=== PATIENT | male | born 1970 | race African-American/Black ===

== ENCOUNTER 2021-04-23 20:23 | Observation (INO) | payer OTHER ==
[~2021-04-23] VITALS: Ht 190.5 cm; Wt 113.4 kg
[2021-04-23 21:04] LABS: BASOPHILS % 0.3 % (0.0-1.0); EOSINOPHILS # (AUTO) 0.1 (0.0-0.4); EOSINOPHILS % 1.4 % (0.0-6.0); HEMATOCRIT 43.9 % (38.2-49.6); HEMOGLOBIN 14.8 g/dL (14.0-18.0); LYMPHOCYTES # (AUTO) 2.5 (1.0-3.2); LYMPHOCYTES % 25.8 % (18.0-39.1); MEAN CORPUSCULAR HEMOGLOBIN 30.8 pg (28-32); MEAN CORPUSCULAR HGB CONC 33.7 g/dL (31-35); MEAN CORPUSCULAR VOLUME 91.3 fL (81-99); MONOCYTES # (AUTO) 0.9 (0.2-0.8); MONOCYTES % 9.1 % (4.4-11.3); NEUTROPHILS # (AUTO) 6.1 (2.1-6.9); NEUTROPHILS % 63.1 % (38.7-80.0); PLATELET COUNT 111 x10e3/uL (140-360); RED BLOOD COUNT 4.81 x10e6/uL (4.3-5.7); RED CELL DISTRIBUTION WIDTH 13.1 % (11.7-14.4)
[2021-04-23 21:17] LABS: ALANINE AMINOTRANSFERASE 41 IU/L (0-55); ALBUMIN 4.4 g/dL (3.5-5.0); ALBUMIN/GLOBULIN RATIO 1.2 (0.8-2.0); ALKALINE PHOSPHATASE 40 IU/L (40-150); ANION GAP 17.5 mmol/L (8-16); BLOOD UREA NITROGEN 10 mg/dL (7-26); BUN/CREATININE RATIO 9 (6-25); CALCIUM 9.4 mg/dL (8.4-10.2); CARBON DIOXIDE 24 mmol/L (22-29); CHLORIDE 102 mmol/L (98-107); CREATINE KINASE 576 IU/L (30-200); CREATININE, SERUM 1.11 mg/dL (0.72-1.25); EST GLOMERULAR FILTRATION RATE 84 ML/MIN (60-); GLUCOSE 96 mg/dL (74-118); POTASSIUM 3.5 mmol/L (3.5-5.1); SODIUM 140 mmol/L (136-145)
[2021-04-23 23:18] LABS: AMPHETAMINES SCREEN,URINE NEGATIVE (NEGATIVE); BENZODIAZEPINES SCREEN,URINE NEGATIVE (NEGATIVE); PHENCYCLIDINE SCREEN,URINE NEGATIVE (NEGATIVE)
[2021-04-24] VITALS (8 sets, daily range): BP systolic 131–153; BP diastolic 73–99
[2021-04-24] MEDS ORDERED: POTASSIUM CHLORIDE 20 MEQ TAB CR PO PRN (00:45)
[2021-04-24] MEDS ORDERED: DOCUSATE SODIUM 100 MG CAP PO PRN (00:45)
[2021-04-24] MEDS ORDERED: LIDOCAINE 4% PATCH TP PRN (00:45)
[2021-04-24] MEDS ORDERED: DIPHENHYDRAMINE HCL 25 MG CAP PO PRN (00:45)
[2021-04-24] MEDS ORDERED: ALBUTEROL/IPRATROPIUM 3 ML NEB NEB PRN (00:45)
[2021-04-24] MEDS ORDERED: BENZONATATE 100 MG CAP PO PRN (00:45)
[2021-04-24] MEDS ORDERED: ACETAMINOPHEN 325 MG TAB PO PRN (00:45)
[2021-04-24] MEDS ORDERED: HYDRALAZINE HCL 20 MG/ML VIAL IV PRN (00:45)
[2021-04-24] MEDS ORDERED: DEXTROSE 50% SYRINGE 50 ML IV PRN (00:45)
[2021-04-24] MEDS ORDERED: ONDANSETRON HCL INJ 2MG/ML 2ML 2 MG/ML VIAL IV PRN (00:45)
[2021-04-24] MEDS ORDERED: HYDROCODONE/APAP 5MG-325MG TAB PO PRN (00:45)
[2021-04-24] MEDS ORDERED: MELATONIN 5 MG TABLET PO PRN (00:45)
[2021-04-24] MEDS ORDERED: ASPIRIN 81 MG CHEW TAB ONE (02:53)
[2021-04-24] MEDS: ASPIRIN 325 MG TAB EC PO SCH ×2 (03:13→10:23)
[2021-04-24] MEDS ORDERED: BAYER PLUS 500500 MG (03:31)
[2021-04-24 06:15] LABS: BASOPHILS # (AUTO) 0.1 (0.0-0.1); BASOPHILS % 0.6 % (0.0-1.0); EOSINOPHILS # (AUTO) 0.2 (0.0-0.4); EOSINOPHILS % 2.4 % (0.0-6.0); HEMATOCRIT 43.2 % (38.2-49.6); HEMOGLOBIN 14.5 g/dL (14.0-18.0); LYMPHOCYTES # (AUTO) 2.5 (1.0-3.2); LYMPHOCYTES % 30.9 % (18.0-39.1); MEAN CORPUSCULAR HEMOGLOBIN 30.9 pg (28-32); MEAN CORPUSCULAR HGB CONC 33.6 g/dL (31-35); MEAN CORPUSCULAR VOLUME 91.9 fL (81-99); MONOCYTES % 11.8 % (4.4-11.3); NEUTROPHILS # (AUTO) 4.4 (2.1-6.9); NEUTROPHILS % 54.1 % (38.7-80.0); PLATELET COUNT 110 x10e3/uL (140-360); RED CELL DISTRIBUTION WIDTH 13.2 % (11.7-14.4)
[2021-04-24 06:45] LABS: ANION GAP 15.1 mmol/L (8-16); CALCIUM 8.9 mg/dL (8.4-10.2); CREATININE, SERUM 1.12 mg/dL (0.72-1.25); POTASSIUM 4.1 mmol/L (3.5-5.1)
[2021-04-24 07:02] LABS: CREATINE KINASE 498 IU/L (30-200)
[2021-04-24 07:05] LABS: THYROID STIMULATING HORMONE 3.384 uIU/mL (0.350-4.940)
[2021-04-24] MEDS ORDERED: PANTOPRAZOLE SOD 40 MG TABEC PO SCH (07:30)
[2021-04-24 15:47] LABS: CREATINE KINASE 485 IU/L (30-200)
[2021-04-24] MEDS ORDERED: ENOXAPARIN SOD INJ 40 MG/0.4 ML SYR SC SCH (17:00)
== END 2021-04-24 15:48 | disposition home or self-care (01) ==
LOC: ER 21:08 → ERHOLD 22:14 → MED/SURG2 04-24 01:52
PROVIDERS: ADMIT Internal Medicine; ATTEND Internal Medicine
DX: R07.89 Other chest pain (principal); I10 Essential (primary) hypertension; Z82.49 Family history of ischemic heart disease and other diseases of the circulatory system; Z20.822 Contact with and (suspected) exposure to COVID-19
CPT/HCPCS: 36415 ×2; 71045; 80048; 80053; 80061; 80307; 82550 ×2; 82553 ×2; 83036; 83735; 83880; 84443; 84484 ×2; 85025 ×2; 93005; 99284; G0378 ×2; S0164; U0002